=== PATIENT | male | born 1980 | race Caucasian/White ===

== ENCOUNTER 2020-05-21 09:52 | Emergency (ER) | payer OTHER ==
[~2020-05-21] VITALS: Ht 172.7 cm; Wt 81.6 kg
== END 2020-05-21 12:30 | disposition home or self-care (01) ==
LOC: ED 09:52
DX: S61.211A Laceration without foreign body of left index finger without damage to nail, initial encounter (principal); Z88.0 Allergy status to penicillin; W26.8XXA Contact with other sharp object(s), not elsewhere classified, initial encounter; Y93.89 Activity, other specified; Y92.89 Other specified places as the place of occurrence of the external cause; Y99.8 Other external cause status